=== PATIENT | female | born 1995 | race Caucasian/White ===

== ENCOUNTER 2021-09-28 05:12 | Inpatient (IN) | payer BC ==
[2021-09-28] MEDS ORDERED: Citric Acid/Sodium Citrate Solution 30 ML Cup PO ONE (05:31)
[2021-09-28] MEDS ORDERED: Ondansetron 4 MG/2 ML SDV IVPUSH PRN ×2 (05:31→08:50)
[2021-09-28] MEDS ORDERED: ceFAZolin 2 GM in Sodium Chloride 0.9% 50 ML IV ONE (05:31)
[2021-09-28] MEDS ORDERED: Metoclopramide 10 MG/2 ML SDV IVPUSH ONE (05:31)
[2021-09-28] MEDS ORDERED: Oxytocin/Lactated Ringers 20 UNIT/1,000 ML BAG IV SCH (05:45)
[2021-09-28] MEDS ORDERED: Lactated Ringers 1,000 ML IV SCH (05:45)
[2021-09-28] MEDS ORDERED: Oxytocin 10 Units/1 ML SDV ONE (06:47)
[2021-09-28] MEDS ORDERED: ceFAZolin 2 GM Vial ONE (06:47)
[2021-09-28] MEDS ORDERED: Lactated Ringers 1,000 ML ONE (06:47)
[2021-09-28] MEDS ORDERED: Ketorolac 30 MG/ML SDV ONE (06:47)
[2021-09-28] MEDS ORDERED: Ondansetron 4 MG/2 ML SDV ONE (06:47)
[2021-09-28] MEDS ORDERED: Morphine PF 10 MG/10 ML SDV ONE (06:48)
[2021-09-28] MEDS ORDERED: Bupivacaine 0.5% 30 ML SDV ONE (07:09)
[2021-09-28] MEDS ORDERED: ePHEDrine 50 MG/ML SDV ONE (07:57)
[2021-09-28] MEDS ORDERED: Dexamethasone 4 MG/ML SDV ONE (08:06)
[2021-09-28] MEDS ORDERED: diphenhydrAMINE 50 MG/ML SDV IVPUSH PRN ×2 (08:50→10:06)
[2021-09-28] MEDS ORDERED: fentaNYL 100 MCG/2 ML SDV IVPUSH PRN (08:50)
[2021-09-28] MEDS ORDERED: Sodium Chloride 0.9% 10 ML Syringe FLUSH SCH (09:00)
[2021-09-28] MEDS ORDERED: Acetaminophen/oxyCODONE 325-5 MG Tab PO PRN ×2 (10:06)
[2021-09-28] MEDS ORDERED: Dextrose 5%-Lactated Ringers 1,000 ML IV SCH (10:06)
[2021-09-28] MEDS ORDERED: Naloxone 0.4 MG/ML SDV IVPUSH PRN (10:06)
[2021-09-28] MEDS ORDERED: ePHEDrine 50 MG/ML SDV IVPUSH PRN (10:06)
[2021-09-28] MEDS ORDERED: Ondansetron 4 MG/2 ML SDV IV PRN (10:06)
[2021-09-28] MEDS: Simethicone 80 MG Tab.Chew PO SCH ×4 (12:37→21:31)
[2021-09-28] MEDS: Docusate Sodium 100 MG Cap PO SCH ×2 (12:39→21:31)
[2021-09-28] MEDS: Prenatal Multivitamin with Calcium/Folic Acid/Iron Tab PO SCH (13:32)
[2021-09-29] MEDS: Ibuprofen 600 MG Tab PO PRN ×3 (04:51→20:02)
[2021-09-29] MEDS: Prenatal Multivitamin with Calcium/Folic Acid/Iron Tab PO SCH (13:23)
[2021-09-29] MEDS: Simethicone 80 MG Tab.Chew PO SCH ×3 (13:23→23:06)
[2021-09-29] MEDS: Docusate Sodium 100 MG Cap PO SCH (13:25)
[2021-09-30] MEDS: Ibuprofen 600 MG Tab PO PRN ×2 (04:55→10:32)
[2021-09-30] MEDS: Simethicone 80 MG Tab.Chew PO SCH ×3 (10:32→14:37)
[2021-09-30] MEDS: Docusate Sodium 100 MG Cap PO SCH ×2 (10:32→14:37)
[2021-09-30] MEDS: Prenatal Multivitamin with Calcium/Folic Acid/Iron Tab PO SCH (10:32)
[2021-09-30 14:17] VITALS: BP 126/88; PULSE 87
== END 2021-09-30 12:30 | disposition home or self-care (01) | DRG 540 ==
LOC: JD.OB 05:12
PROVIDERS: ADMIT Obstetrics & Gynecology; ATTEND Obstetrics & Gynecology
PROC: 10D00Z1 Extraction of Products of Conception, Low, Open Approach (ICD-10-PCS; principal; 2021-09-28)
DX: O30.043 Twin pregnancy, dichorionic/diamniotic, third trimester (principal); Z3A.37 37 weeks gestation of pregnancy; Z37.2 Twins, both liveborn; O32.1XX1 Maternal care for breech presentation, fetus 1; O36.5931 Maternal care for other known or suspected poor fetal growth, third trimester, fetus 1
CPT/HCPCS: 36415; 59025; 85025; 86592; 86850; 86900; 86901; A9270-GY; J0690; J1100; J1885; J2274; J2405; J2590; J2765; J3490; J7120; J7121

== ENCOUNTER 2022-12-05 18:26 | Emergency (ER) | payer BC ==
[2022-12-05] MEDS ORDERED: Ketorolac 30 MG/ML SDV IVPUSH ONE (18:51)
[2022-12-05] MEDS ORDERED: Sodium Chloride 0.9% 10 ML Syringe FLUSH PRN (18:52)
[2022-12-05 18:59] LABS: BASOPHILS ABSOLUTE AUTO 0.1 K/mm3 (0.0-0.2); BASOPHILS PERCENT AUTO 0.7 % (0.0-1.0); EOSINOPHILS PERCENT AUTO 0.5 % (0.0-6.0); HEMATOCRIT 41.2 % (37.0-47.0); HEMOGLOBIN 14.1 gm/dl (12.0-16.0); IMMATURE GRAN ABSOLUTE AUTO 0.02 K/mm3 (0.00-0.05); IMMATURE GRAN PERCENT AUTO 0.2 % (0.0-0.4); LYMPHOCYTES ABSOLUTE AUTO 1.7 K/mm3 (1.0-4.8); LYMPHOCYTES PERCENT AUTO 19.8 % (24.0-44.0); MEAN CORPUSCULAR HEMOGLOBIN 30.7 pg (28.0-32.0); MEAN CORPUSCULAR HGB CONC 34.2 g/dl (32.0-36.0); MEAN CORPUSCULAR VOLUME 89.6 fl (83.0-99.0); MEAN PLATELET VOLUME 10.2 fl (9.4-12.3); MONOCYTES ABSOLUTE AUTO 0.5 K/mm3 (0.0-0.8); NEUTROPHILS ABSOLUTE AUTO 6.4 K/mm3 (1.8-7.7); NEUTROPHILS PERCENT AUTO 72.8 % (41.0-71.0); PLATELET COUNT,PLT 208 K/mm3 (150-400)
[2022-12-05] MEDS ORDERED: Sodium Chloride 0.9% 1,000 ML IV SCH (19:00)
[2022-12-05 19:25] LABS: A/G RATIO 1.2 (1-2); ALANINE AMINOTRANSFERASE,ALT 21 U/L (14-59); ALBUMIN 4.2 g/dl (3.4-5.0); ALKALINE PHOSPHATASE 98 U/L (46-116); ANION GAP 9.8 (5-15); ASPARTATE AMNIOTRANSFERASE,AST 14 U/L (15-37); BILIRUBIN TOTAL 0.2 mg/dL (0.2-1.0); BLOOD UREA NITROGEN,BUN 13 mg/dL (7-18); BUN/CREATININE RATIO 16.3 (14-18); C-REACTIVE PROTEIN <0.2 mg/dL (<1.0); CALCIUM 8.9 mg/dL (8.5-10.1); CARBON DIOXIDE,CO2 27 mEq/L (21-32); CHLORIDE,CL 104 mEq/L (98-107); CREATININE 0.8 mg/dL (0.55-1.02); ESTIMATED GFR 102 mL/min (>60); GLUCOSE RANDOM 105 mg/dL (70-99); POTASSIUM,K 3.8 mEq/L (3.5-5.1); PROTEIN TOTAL,TP 7.6 g/dl (6.4-8.2); SODIUM,NA 137 mEq/L (136-145)
[2022-12-05 19:26] LABS: HCG QUANTITATIVE < 1.0 mIU/mL
[2022-12-05 20:45] LABS: APPEARANCE,URINE CLEAR (Clear); BILIRUBIN,URINE NEGATIVE (Negative); COLOR,URINE YELLOW (Yellow); GLUCOSE,URINE NEGATIVE (Negative); KETONES,URINE NEGATIVE (Negative); LEUKOCYTE ESTERASE,URINE NEGATIVE (Negative); NITRITE,URINE NEGATIVE (Negative); OCCULT BLOOD,URINE 2+ (Negative); PROTEIN,URINE 1+ (Negative); UROBILINOGEN,URINE 0.2 (0.2-1.0)
[2022-12-05 20:55] LABS: BACTERIA,URINE FEW /hpf (FEW); MUCUS,URINE FEW /hpf (FEW); RBC,URINE 20-30 /hpf (0-5); SQUAMOUS EPITHELIAL CELLS,UR 0-5 /hpf (0-5); WBC,URINE 0-5 /hpf (0-5)
[2022-12-05] MEDS ORDERED: HYDROmorphone 0.5 MG/0.5 ML Syringe IVPUSH ONE ×2 (21:22→23:23)
[2022-12-05] MEDS ORDERED: Ondansetron 4 MG/2 ML SDV IVPUSH ONE (23:23)
[2022-12-06 01:10] VITALS: BP 118/72; PULSE 70
== END 2022-12-05 23:54 | disposition home or self-care (01) ==
LOC: JD.ED 18:26
DX: R10.2 Pelvic and perineal pain (principal)
CPT/HCPCS: 36415; 76830; 80053; 81001; 84702; 85025; 86140; 87635; 96361; 96374; 96375; 96376; 99284; J1170; J1885; J2405; J3490; J7030; U0002

== ENCOUNTER 2023-12-07 16:39 | Emergency (ER) | payer BC ==
[2023-12-07] MEDS ORDERED: Sodium Chloride 0.9% 10 ML Syringe FLUSH PRN (17:18)
[2023-12-07] MEDS: Sodium Chloride 0.9% 1,000 ML IV SCH (17:51)
[2023-12-07 17:56] LABS: BASOPHILS ABSOLUTE AUTO 0.1 K/mm3 (0.0-0.2); BASOPHILS PERCENT AUTO 0.7 % (0.0-1.0); EOSINOPHILS ABSOLUTE AUTO 0.2 K/mm3 (0.0-0.4); EOSINOPHILS PERCENT AUTO 2.3 % (0.0-6.0); HEMATOCRIT 43.1 % (37.0-47.0); HEMOGLOBIN 14.8 gm/dl (12.0-16.0); IMMATURE GRAN ABSOLUTE AUTO 0.02 K/mm3 (0.00-0.05); IMMATURE GRAN PERCENT AUTO 0.2 % (0.0-0.4); LYMPHOCYTES ABSOLUTE AUTO 1.8 K/mm3 (1.0-4.8); LYMPHOCYTES PERCENT AUTO 21.6 % (24.0-44.0); MEAN CORPUSCULAR HEMOGLOBIN 30.3 pg (28.0-32.0); MEAN CORPUSCULAR HGB CONC 34.3 g/dl (32.0-36.0); MEAN CORPUSCULAR VOLUME 88.3 fl (83.0-99.0); MEAN PLATELET VOLUME 10.4 fl (9.4-12.3); MONOCYTES ABSOLUTE AUTO 0.5 K/mm3 (0.0-0.8); MONOCYTES PERCENT AUTO 6.2 % (0.0-8.0); NEUTROPHILS ABSOLUTE AUTO 5.7 K/mm3 (1.8-7.7); PLATELET COUNT,PLT 229 K/mm3 (150-400); RED BLOOD CELL COUNT 4.88 M/mm3 (4.10-5.30); WHITE BLOOD CELL COUNT,WBC 8.27 K/mm3 (3.9-11.3)
[2023-12-07 17:58] LABS: APPEARANCE,URINE CLEAR (Clear); BILIRUBIN,URINE NEGATIVE (Negative); COLOR,URINE LIGHT YELLOW (Yellow); GLUCOSE,URINE NEGATIVE (Negative); KETONES,URINE NEGATIVE (Negative); LEUKOCYTE ESTERASE,URINE TRACE (Negative); NITRITE,URINE NEGATIVE (Negative); OCCULT BLOOD,URINE TRACE-LYSED (Negative); PH,URINE 6.5 (5.0-8.0); PROTEIN,URINE NEGATIVE (Negative); UROBILINOGEN,URINE 0.2 (0.2-1.0)
[2023-12-07 18:06] LABS: BACTERIA,URINE OCCASIONAL /hpf (FEW); RBC,URINE 0-5 /hpf (0-5); SQUAMOUS EPITHELIAL CELLS,UR 0-5 /hpf (0-5); WBC,URINE 0-5 /hpf (0-5)
[2023-12-07 18:07] LABS: MUCUS,URINE FEW /hpf (FEW)
[2023-12-07 18:24] LABS: A/G RATIO 1.2 (1-2); ANION GAP 12.7 (5-15); BILIRUBIN TOTAL 0.3 mg/dL (0.2-1.0); BUN/CREATININE RATIO 16.7 (14-18); C-REACTIVE PROTEIN 0.81 mg/dL (<0.30); CALCIUM 9.6 mg/dL (8.5-10.1); CREATININE 0.9 mg/dL (0.55-1.02); EST CRCL DRUG DOSING (CG) 85.56 mL/min; POTASSIUM,K 3.7 mEq/L (3.5-5.1); PROTEIN TOTAL,TP 7.4 g/dl (6.4-8.2)
[2023-12-07] MEDS: Iopamidol 755 Mg/ML 100 ML Bottle IVPUSH ONE (18:25)
[2023-12-07] MEDS: Sodium Chloride 0.9% 100 ML IV SCH (18:25)
[2023-12-07 19:20] VITALS: BP 116/66; PULSE 78
== END 2023-12-07 19:19 | disposition home or self-care (01) ==
LOC: JD.ED 16:39
DX: R07.89 Other chest pain (principal); N83.202 Unspecified ovarian cyst, left side; N89.8 Other specified noninflammatory disorders of vagina; E04.1 Nontoxic single thyroid nodule
CPT/HCPCS: 36415; 71275; 74177; 80053; 81001; 83605; 85025; 86140; 93005; 96360; 99285; J3490; J7030; Q9967

== ENCOUNTER 2024-06-15 08:15 | Emergency (ER) | payer BC ==
[2024-06-15] MEDS ORDERED: Sodium Chloride 0.9% 10 ML Syringe FLUSH PRN (08:35)
[2024-06-15] MEDS: diphenhydrAMINE 50 MG/ML SDV IVPUSH ONE (08:42)
[2024-06-15] MEDS: Metoclopramide 10 MG/2 ML SDV IVPUSH ONE (08:42)
[2024-06-15] MEDS: Ketorolac 30 MG/ML SDV IVPUSH ONE (08:42)
[2024-06-15 10:23] VITALS: BP 116/65; PULSE 78
== END 2024-06-15 10:20 | disposition home or self-care (01) ==
LOC: JD.ED 08:15
DX: G43.909 Migraine, unspecified, not intractable, without status migrainosus (principal); Z79.899 Other long term (current) drug therapy
CPT/HCPCS: 70450; 72125; 96374; 96375; 99284; J1200; J1885; J2765